=== PATIENT | female | born 1970 | race Caucasian/White ===

== ENCOUNTER → 2016-04-29 | Outpatient (CLI) | payer MEDICAID ==
--- NOTE | 2016-04-29 17:03 | DX ---
Bilateral Hands, 3 views of each History: Polyarthralgia, M [age] Findings: Right: There is a large active erosion or degenerative cyst involving the palmar proximal l unate. There are old healed erosions involving the distal ulnar head of the middle phalanx of the thi rd finger, the radial base of the distal phalanx of the fifth finger and of the radial base of the pr oximal phalanx of the fourth finger. Overall mineralization is normal. There is minimal ulnar deviati on of the third finger. There is no joint space narrowing. There is no chondrocalcinosis. The ulna is normal in length. Left: There is a small active erosion or degenerative cyst involving the palmar aspect of the carpal lunate. There are small old healed erosions involving the ulnar base of the middle phalanx and of the radial base of the proximal phalanx of the second finger. Overall mineralization is normal. There is mild ulnar deviation of the third finger. There is no joint space narrowing. There is no chondrocalc inosis. The ulna is normal in length. Impression: Active erosions versus degenerative cysts with overlying cortical erosion involving the l unate bones, right larger than left. A limited number of old healed erosions are identified bilateral ly.
== END ==
LOC: BRMIMAGING 12:32
PROVIDERS: ATTEND Internal Medicine
DX: M25.541 Pain in joints of right hand (principal); M25.542 Pain in joints of left hand
CPT/HCPCS: 73130-PO